=== PATIENT | female | born 1955 ===

== ENCOUNTER 2021-06-20 09:27 | Day surgery (SDC) | payer OTHER ==
[~2021-06-20 09:27] MED LIST: ATACAND4 MG PO; CRESTOR5 MG PO; XALATAN
== END 2021-06-20 21:20 | disposition home or self-care (01) ==
LOC: CIR.AMB 09:27
PROVIDERS: ATTEND Specialist
DX: N85.8 Other specified noninflammatory disorders of uterus (principal); Z20.822 Contact with and (suspected) exposure to COVID-19; I10 Essential (primary) hypertension; Z88.8 Allergy status to other drugs, medicaments and biological substances